=== PATIENT | male | born 1980 | race American Indian/Alaskan Native ===

== ENCOUNTER 2022-04-09 05:52 | Emergency (ER) | payer SELFPAY ==
[2022-04-09] MEDS ORDERED: LIDOCAINE (1%) 10 MG/1 ML VIAL 20 ML MDV INFILTRATI ONE (07:04)
[2022-04-09] MEDS ORDERED: SODIUM CHLORIDE 0.9% IRR 500 ML BOTTLE IR ONE (07:04)
[2022-04-09] MEDS ORDERED: TETANUS,DIPH,PERTUSS(ACELL) VACCINE 0.5 ML SYRINGE IM ONE (07:04)
[2022-04-09] MEDS ORDERED: BACITRACIN ZINC OINT 28.4 GM TP STA (07:56)
[2022-04-09] MEDS ORDERED: SODIUM CHLORIDE 0.9% 500 ML 500 ML IV SCH (08:00)
[2022-04-09 08:02] LABS: BUN/Creatinine Ratio 16; Blood Urea Nitrogen 19 mg/dL (9-20); Calcium 9.1 mg/dL (8.4-10.2); Hemolysis Index 7
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
[2022-04-09 12:19] VITALS: BP 119/72
== END 2022-04-09 12:19 | disposition home or self-care (01) ==
LOC: ED 05:52
DX: S11.91XA Laceration without foreign body of unspecified part of neck, initial encounter (principal); W26.0XXA Contact with knife, initial encounter; Y93.89 Activity, other specified; Y92.89 Other specified places as the place of occurrence of the external cause; Y99.8 Other external cause status
CPT/HCPCS: 12011; 36415; 70498; 80048; 90471; 90715; 99284; J7040; Q9967

== ENCOUNTER 2022-04-21 13:18 | Emergency (ER) | payer BC ==
[2022-04-21] MEDS ORDERED: IBUPROFEN 800 MG TAB PO ONE (22:36)
[2022-04-21] MEDS ORDERED: cephALEXin 500 MG CAP PO ONE (22:36)
--- NOTE | 2022-04-21 23:24 | Emergency Department Report ---
ED General Adult HPI - General Chief complaint: Skin/Abscess/Foreign Body Stated complaint: SUTURES ARE SWOLLEN (AREA SITE) Time Seen by Provider: 04/21/22 22:36 Source: family Mode of arrival: Ambulatory Limitations: No Limitations - History of Present Illness Initial comments: Patient 42-year-old male who presents for infection to suture site x2 days. States he got sutures placed behind his left ear 1 week ago. Now with pain and swelling and erythema to same. Patient denies nausea vomiting no tinnitus no decrease in hearing. No fever or chills. As are exacerbated by nothing tried symptoms are relieved by nothing. Patient states pain to touch only. Severity scale (0 -10): 7 - Related Data Previous Rx's Medication Instructions Recorded Last Taken Type Ibuprofen [Motrin 800 MG tab] 800 mg PO Q8HR PRN #30 tablet 04/21/22 Unknown Rx cephALEXin [Keflex] 500 mg PO TID 7 Days #21 cap 04/21/22 Unknown Rx Allergies Allergy/AdvReac Type Severity Reaction Status Date / Time No Known Allergies Allergy Verified 04/09/22 06:05 ED Review of Systems ROS: Stated complaint: SUTURES ARE SWOLLEN (AREA SITE) Other details as noted in HPI Constitutional: denies: chills, fever Eyes: denies: eye pain, eye discharge, vision change ENT: denies: ear pain, throat pain Respiratory: denies: cough, shortness of breath, wheezing Cardiovascular: denies: chest pain, palpitations Endocrine: no symptoms reported Gastrointestinal: denies: abdominal pain, nausea, diarrhea Genitourinary: denies: urgency, dysuria Musculoskeletal: denies: back pain, joint swelling, arthralgia Skin: other (Pain to suture site left ear) Neurological: denies: headache, weakness, paresthesias, vertigo Psychiatric: denies: anxiety, depression Hematological/Lymphatic: denies: easy bleeding, easy bruising ED Past Medical Hx - Social History Smoking Status: Never Smoker Substance Use Type: None - Medications Home Medications: Home Medications Medication Instructions Recorded Confirmed Last Taken Type Ibuprofen [Motrin 800 MG tab] 800 mg PO Q8HR PRN #30 tablet 04/21/22 Unknown Rx cephALEXin [Keflex] 500 mg PO TID 7 Days #21 cap 04/21/22 Unknown Rx ED Physical Exam - General Limitations: No Limitations General appearance: alert, in no apparent distress - Head Head exam: Present: normocephalic - Eye Eye exam: Present: PERRL, EOMI Pupils: Present: normal accommodation - ENT ENT exam: Present: normal orophraynx, mucous membranes moist, TM's normal bilaterally, normal external ear exam - Neck Neck exam: Present: normal inspection, tenderness, full ROM - Respiratory Respiratory exam: Present: normal lung sounds bilaterally. Absent: respiratory distress, wheezes, rales, rhonchi, stridor - Cardiovascular Cardiovascular Exam: Present: regular rate, normal rhythm, normal heart sounds. Absent: systolic murmur, diastolic murmur, rubs, gallop - GI/Abdominal GI/Abdominal exam: Present: soft, normal bowel sounds. Absent: distended, tenderness - Rectal Rectal exam: Present: deferred - Extremities Exam Extremities exam: Present: normal inspection, full ROM. Absent: tenderness - Back Exam Back exam: Present: normal inspection, full ROM. Absent: CVA tenderness (R), CVA tenderness (L) - Neurological Exam Neurological exam: Present: alert, oriented X3, CN II-XII intact, normal gait - Expanded Neurological Exam Expanded Patient oriented to: Present: person, place, time Speech: Present: fluid speech Best Eye Response ([place]ia): (4) open spontaneously Best Motor Response ([place]): (6) obeys commands Best Verbal Response ([place]): (5) oriented [place] Total: 15 - Psychiatric Psychiatric exam: Present: normal affect, normal mood - Skin Skin exam: Present: warm, dry, intact, normal color, erythema (Left posterior ear erythema no fluctuance no fever to touch no crepitus or step-off. No drainage noted.). Absent: rash, petechiae, ecchymosis ED Course Vital Signs 04/21/22 16:36 Temperature 98.6 F Pulse Rate 59 L Respiratory 18 Rate Blood Pressure 125/74 O2 Sat by Pulse 94 Oximetry ED Medical Decision Making - Medical Decision Making this is an infected suture site plan DC to home with prescriptions. Take medications as prescribed. Use moist heat therapy as directed. Follow-up with your doctor in 2 to 3 days. Use moist heat therapy as directed. Return to emergency department should symptoms worsen. Critical care attestation.: If time is entered above; I have spent that time in minutes in the direct care of this critically ill patient, excluding procedure time. ED Disposition Clinical Impression: Cellulitis Qualifiers: Site of cellulitis: neck Qualified Code(s): L03.221 - Cellulitis of neck Disposition: HOME / SELF CARE / HOMELESS Is pt being admited?: No Does the pt Need Aspirin: No Condition: Stable Instructions: Cellulitis, Adult, [id number] Additional Instructions: Take medication as prescribed, wash with soap and water daily. Follow-up with your doctor in 2 to 3 days. Return to emergency department should symptoms worsen. Prescriptions: cephALEXin [Keflex] 500 mg PO TID 7 Days #21 cap Ibuprofen [Motrin 800 MG tab] 800 mg PO Q8HR PRN #30 tablet PRN Reason: pain Referrals: SHANEKA CARRASCO MD [Staff Physician] - 3-5 Days Forms: Work/School Release Form(ED) Time of Disposition: 23:26
[2022-04-21 23:37] VITALS: BP 132/81
== END 2022-04-22 00:20 | disposition home or self-care (01) ==
LOC: ED 13:18
DX: L03.90 Cellulitis, unspecified (principal)
CPT/HCPCS: 99282